=== PATIENT | female | born 1955 | race Caucasian/White ===

== ENCOUNTER → 2016-10-21 | Outpatient (CLI) | payer BC ==
[~2016-10-21] MED LIST: LEVO-217 PO; SERT50TA PO
--- NOTE | 2016-10-21 10:48 | DIAGNOSTIC IMAGING REPORT ---
RIGHT KNEE 4 VIEWS; LEFT KNEE 4 VIEWS CLINICAL HISTORY: Bilateral knee pain. FINDINGS: An AP standing view of both knees, a tunnel view of both knees, a sunrise view of both knees, with lateral views of the right and left knee are obtained. No prior studies are available for comparison at the time of dictation. The skeletal structures are osteopenic. No fracture is seen. Right knee: There is mild tricompartmental degenerative joint space narrowing in the right knee. This is greatest in the medial and patellofemoral compartments. There is no evidence of osteochondral defect on the tunnel image. A calcified fabella is incidentally noted. No joint effusion is seen. The overlying soft tissues are within normal limits. Left knee: There is mild tricompartmental degenerative joint space narrowing in the left knee. This is greatest in the medial and patellofemoral compartments. There is no evidence of osteochondral defect on the tunnel image. A calcified fabella is incidentally noted. No joint effusion is seen. The overlying soft tissues are within normal limits. IMPRESSION: 1. No acute bony abnormality seen in either knee. 2. Mild degenerative change as above. Electronically signed by: Sammy Christianson M.D. 10/21/2016 10:46 AM Dictated Date/Time: 10/21/2016 10:44 AM
== END | disposition home or self-care (01) ==
LOC: C.RDSM 10:18
PROVIDERS: ATTEND Family Medicine
DX: M25.561 Pain in right knee (principal)

== ENCOUNTER → 2017-07-03 | Outpatient (CLI) | payer BC ==
[~2017-07-03] VITALS: Ht 156.2 cm; Wt 74.1 kg
[2017-07-03 14:05] VITALS: BP 117/74; PULSE 77; Ht 156.2 cm; Wt 74.1 kg
== END | disposition home or self-care (01) ==
LOC: C.NEUR 13:53
PROVIDERS: ATTEND Internal Medicine Pulmonary Disease
DX: R06.83 Snoring (principal); G47.8 Other sleep disorders; R53.83 Other fatigue; G47.00 Insomnia, unspecified; F32.9 Major depressive disorder, single episode, unspecified

== ENCOUNTER → 2017-11-20 | Day surgery (SDC) | payer OTHER, BC ==
[2017-11-09 09:09] VITALS: Ht 157.5 cm; Wt 70.5 kg
[~2017-11-20] VITALS: Ht 157.5 cm; Wt 70.5 kg
[~2017-11-20] MED LIST changes: +EpHEDrine SULFATE 50MG/5ML SYR ONE; -LEVO-217 PO; +LEVO50TA6 PO; +LIDOCAINE HCL 2% 2 ML VIAL (20MG/ML) ONE; +PROPOFOL IV EMULSION 10 MG/ML 20 ML VIAL IV ONE
--- NOTE | 2017-11-20 09:16 | Endo History and Physical ---
History & Physical Date of Service: Nov 20, 2017. Chief Complaint: screening Referring Physician: Dr. Zuhair Amezcua History of Present Illness 62 yo CF who presents for screening colonoscopy. Past Medical History Anxiety, Reflux, Cancer, Thyroid Disease, Depression Past Surgical History Hx Cardiac Surgery: No Hx Internal Defibrillator: No Hx Pacemaker: No Hx Abdominal Surgery: No Hx of Implantable Prosthesis: No Hx Post-Op Nausea and Vomiting: No Hx Cancer Surgery: Yes (BANG BSO) Hx Thoracic Surgery: No Hx Orthopedic: No Hx Urinary Tract Surgery: No Family History IBD Social History Smoking Status: Never Smoker Hx Substance Use: No Hx Alcohol Use: Yes (RARELY) Allergies Coded Allergies: Latex (Verified Allergy, Unknown, RASH, 11/09/17) NO KNOWN DRUG ALLERGIES (Verified Allergy, Unknown, ., 11/09/17) Current Medications Reported Home Medications Medications Dose Route/Sig Max Daily Dose Days Date Category Levothyroxine Sodium 50 Mcg Tab 1 Tab PO QAM 11/09/17 Reported Zoloft (Sertraline HCl) 50 Mg Tab 50 Mg PO QAM 05/02/13 Reported Vital Signs Weight (Kilograms): 70.45 Height (Feet): 5 Height (Inches): 2 Date Time Temp Pulse Resp B/P (MAP) Pulse Ox O2 Delivery O2 Flow Rate FiO2 11/20/17 09:01 36.6 61 16 127/67 (87) 96 Room Air Physical Exam General Appearance: WD/WN, no apparent distress Respiratory/Chest: Auscultation: breath sounds normal Cardiovascular: Heart Auscultation: RRR Abdomen: Bowel Sounds: normal Inspection & Palpation: soft, non-distended, no tenderness, guarding & rebound Assessment and Plan Assessment: 62 yo CF who presents for screening colonoscopy. Plan: Proceed with colonoscopy.
--- NOTE | 2017-11-20 09:55 | Discharge Instructions ---
Endoscopy Patient Instructions Date / Procedure(s) Performed Nov 20, 2017. Colonoscopy Allergy Information Coded Allergies: Latex (Verified Allergy, Unknown, RASH, 11/09/17) NO KNOWN DRUG ALLERGIES (Verified Allergy, Unknown, ., 11/09/17) Discharge Date / Findings Nov 20, 2017. Internal hemorrhoids Medication Instructions OK to resume all medications today as prescribed Reported Home Medications Medications Dose Route/Sig Max Daily Dose Days Date Category Levothyroxine Sodium 50 Mcg Tab 1 Tab PO QAM 11/09/17 Reported Zoloft (Sertraline HCl) 50 Mg Tab 50 Mg PO QAM 05/02/13 Reported Provider Instructions Activity Restrictions - No exercising or heavy lifting for 24 hours. - Do not drink alcohol the day of the procedure. - Do not drive a car or operate machinery until the day after the procedure. - Do not make any important decisions or sign important papers in 24 hours after the procedure. Following Day: - Return to full activity which may include returning to work/school. Diet Start your diet with liquids and light foods (jello, soup, juice, toast). Then eat your usual diet if not nauseated. Treatment For Common After Affects For mild abdominal pain, bloating, or excessive gas: - Rest - Eat lightly - Lie on right side Follow-Up Information Follow-up with Dr. Zuhair Amezcua as scheduled Anesthesia Information What You Should Know You have had a procedure that required some medicine to reduce anxiety and discomfort. This treatment is called moderate sedation. After receiving the treatment, you may be sleepy, but you will be able to breathe on your own. The effects of the treatment may last for several hours. Follow these instructions along with Activity/Diet recommendations noted above: * Do NOT do anything where dizziness or clumsiness would be dangerous. * Rest quietly at home today, then you can be up and about tomorrow. * Have a responsible person stay with you the rest of today. * You may have had an I.V. today. If so, you may take the dressing off later today. Recommendations Call your doctor if: * Trouble breathing * Continuous vomiting for more than 24 hours * Temperature above 101 degrees * Severe abdominal pain or bloating * Pain not relieved by pain medicine ordered * There is increased drainage or redness from any incision * A large amount of rectal bleeding greater than 2-3 tablespoons. (If you had a polyp/s removed or have hemorrhoids, a small amount of blood - from the rectum is to be expected.) * You have any unanswered questions or concerns. IN THE EVENT OF A SERIOUS EMERGENCY, GO TO THE NEAREST EMERGENCY ROOM Your discharge instructions were prepared by provider Maximo Townsend. Patient Instructions Signature Page Brook Cárdenas Patient (or Guardian) Signature/Date: I have read and understand the instructions given to me by my caregivers. Caregiver/RN/Doctor Signature/Date: The above-named patient and/or guardian has received patient instructions on this date. + Original Patient Signature Page (only) stays with chart. Please make copy for patient.
--- NOTE | 2017-11-20 09:59 | GI REPORT ---
Procedure Date: 11/20/2017 9:23 AM Procedure: Colonoscopy Indications: Screening for colorectal malignant neoplasm Medicines: Monitored Anesthesia Care Complications: No immediate complications. Estimated Blood Loss: Estimated blood loss: none. Procedure: Pre-Anesthesia Assessment: - Prior to the procedure, a History and Physical was performed, and patient medications and allergies were reviewed. The patient's tolerance of previous anesthesia was also reviewed. The risks and benefits of the procedure and the sedation options and risks were discussed with the patient. All questions were answered, and informed consent was obtained. Prior Anticoagulants: The patient has taken no previous anticoagulant or antiplatelet agents. ASA Grade Assessment: II - A patient with mild systemic disease. After reviewing the risks and benefits, the patient was deemed in satisfactory condition to undergo the procedure. After I obtained informed consent, the scope was passed under direct vision. Throughout the procedure, the patient's blood pressure, pulse, and oxygen saturations were monitored continuously. The scope was introduced through the anus and advanced to the terminal ileum. The colonoscopy was performed without difficulty. The patient tolerated the procedure well. The quality of the bowel preparation was good. The terminal ileum, ileocecal valve, appendiceal orifice, and rectum were photographed. Findings: The perianal and digital rectal examinations were normal. Non-bleeding internal hemorrhoids were found during retroflexion. The hemorrhoids were small. The exam was otherwise without abnormality. Impression: - Non-bleeding internal hemorrhoids. - The examination was otherwise normal. - No specimens collected. Recommendation: - Resume previous diet. - Continue present medications. - Repeat colonoscopy in 10 years for surveillance. - Return to primary care physician as previously scheduled. Maximo Townsend, 11/20/2017 9:58:28 AM This report has been signed electronically. Note Initiated On: 11/20/2017 9:23 AM I attest to the content of the Intraoperative Record and orders documented therein, exceptions below
[2017-11-20 10:26] VITALS: BP 112/77; PULSE 60; O2SAT 98
--- NOTE | 2017-11-20 10:42 | Anesthesiology Progress Note ---
Anesthesia Post Op Note Date & Time Nov 20, 2017 at 10:42 Vital Signs Vital Signs Past 12 Hours Date Time Temp Pulse Resp B/P (MAP) Pulse Ox O2 Delivery O2 Flow Rate FiO2 11/20/17 10:26 60 16 112/77 (89) 98 Room Air 11/20/17 09:56 69 16 114/70 (85) 98 Room Air 11/20/17 09:01 36.6 61 16 127/67 (87) 96 Room Air Notes Mental Status: alert / awake / arousable, participated in evaluation Pt Amnestic to Procedure: Yes Nausea / Vomiting: adequately controlled Pain: adequately controlled Airway Patency, RR, SpO2: stable & adequate BP & HR: stable & adequate Hydration State: stable & adequate Anesthetic Complications: no major complications apparent
== END | disposition home or self-care (01) ==
LOC: C.GI 08:36
PROVIDERS: ATTEND Internal Medicine
DX: Z12.11 Encounter for screening for malignant neoplasm of colon (principal); K64.8 Other hemorrhoids; K21.9 Gastro-esophageal reflux disease without esophagitis; F41.9 Anxiety disorder, unspecified; E07.9 Disorder of thyroid, unspecified; F32.9 Major depressive disorder, single episode, unspecified; Z90.710 Acquired absence of both cervix and uterus; Z83.79 Family history of other diseases of the digestive system; Z91.040 Latex allergy status